=== PATIENT | male | born 1945 | race Caucasian/White ===

== ENCOUNTER 2017-09-21 22:54 | Inpatient (IN) | payer MEDICAID ==
[~2017-09-21] VITALS: Ht 170.2 cm; Wt 75.7 kg
--- NOTE | 2017-09-21 22:59 | NUR ---
PT BIB [facility] WITH A C/O WITNESSED SYNCOPAL EPISODE. PT DENIES KO. PT'S FAMILY EN ROUTE TO HOSPITAL. PT IS AA&O X4. PT DENIES PAIN AT THIS TIME. PT IS ON THE MONITOR AND CONTINUOUS PULSE OX. RESP EVEN AND UNLABORED. PT DENIES CP. WILL CONTINUE TO MONITOR THE PT.
--- NOTE | 2017-09-21 23:00 | NUR ---
CRISELDA QUINTANILLA FROM ICU CAME DOWN AND TRANSLATED FOR DR. ROJAS AND THE PT. PT IS [place] SPEAKING ONLY.
--- NOTE | 2017-09-21 23:05 | NUR ---
CLEANED PT'S HEAD LACERATION AND DERMABONDED WOUND, PER DR. ROJAS.
[2017-09-21] MEDS ORDERED: IV NS 0.9% 1,000 ML BAG IV ONE (23:30)
[2017-09-21 23:38] LABS: BASOPHILS # (AUTO) 0.1 /CMM (0.0-0.2); BASOPHILS % (AUTO) 0.6 % (0.0-2.0); EOSINOPHILS % (AUTO) 0.5 % (0.0-6.0); HEMATOCRIT 32 % (39-51); HEMOGLOBIN 10.4 g/dL (13.5-17.5); LYMPHOCYTES # (AUTO) 1.8 /CMM (0.8-4.8); LYMPHOCYTES % (AUTO) 8.5 % (20.0-44.0); MEAN CORPUSCULAR HGB CONC 33 g/dl (31.0-36.0); MEAN CORPUSCULAR VOLUME 86 fL (80-96); MONOCYTES # (AUTO) 1.4 /CMM (0.1-1.30); MONOCYTES % (AUTO) 6.6 % (2.0-12.0); NEUTROPHILS # (AUTO) 18.2 /CMM (1.8-8.9); NEUTROPHILS % (AUTO) 83.8 % (43.0-81.0); PLATELET COUNT (AUTO) 433 /CMM (150-450); RDW COEFFICIENT OF VARIATION 15.6 (11.5-15.0); RED BLOOD CELL COUNT(AUTO) 3.73 MIL/uL (4.5-6.0); WHITE BLOOD COUNT (AUTO) 21.7 K/uL (4.3-11.0)
[2017-09-21 23:51] LABS: CALCIUM, SERUM 9.4 mg/dL (8.5-10.1); CARBON DIOXIDE 26 mmol/L (21-32); CHLORIDE 100 mmol/L (98-107); GLUCOSE 125 mg/dL (74-106); POTASSIUM 4.3 mmol/L (3.5-5.1); SODIUM SERUM 137 mmol/L (136-145); UREA NITROGEN, BLOOD 14 mg/dL (7-18)
[2017-09-21 23:56] LABS: INR 1.06 (0.87-1.13)
[2017-09-21 23:58] LABS: ALANINE AMINOTRANSFERASE 70 U/L (12-78); ALBUMIN 2.6 g/dL (3.4-5.0); ALKALINE PHOSPHATASE 100 U/L (46-116); ASPARTATE AMINOTRANSFERASE 50 U/L (15-37); BILIRUBIN,DIRECT 0.2 mg/dL (0.0-0.2); BILIRUBIN,TOTAL 0.8 mg/dL (0.2-1.0); TOTAL PROTEIN, SERUM 7.5 g/dL (6.4-8.2)
[2017-09-21 23:59] LABS: TROPONIN I < 0.017 ng/mL (0.00-0.056)
--- NOTE | 2017-09-22 00:04 | NUR ---
PT IS GOING TO CT VIA [employer].
[2017-09-22] MEDS ORDERED: IOHEXOL-350 100 ML VIAL IV ONE (00:06)
[2017-09-22] MEDS ORDERED: CT SWABBABLE VALVE TRANS SET 1 EA INFUS.SET MC ONE (00:06)
[2017-09-22 00:27] LABS: LYMPHOCYTES % (MANUAL) 17 % (16-48); NEUTROPHILS % (MANUAL) 83 (42-76)
[2017-09-22] MEDS ORDERED: IV NS 0.9% 1,000 ML BAG IV ONE (01:00)
[2017-09-22] MEDS ORDERED: PIPERACILLIN /TAZOBACTAM 3.375 G in IV D5W 50 ML IV ONE (01:00)
[2017-09-22] MEDS ORDERED: VANCOMYCIN 1 GM in IV D5W 250 ML IV ONE (01:00)
--- NOTE | 2017-09-22 01:10 | NUR ---
TELE 310-2
[2017-09-22] MEDS ORDERED: PIPERACILLIN /TAZOBACTAM 3.375 G VIAL IV ONE (01:47)
[2017-09-22] MEDS ORDERED: VANCOMYCIN 1 GM VIAL ONE (01:47)
[2017-09-22] MEDS ORDERED: IV NS 0.9% 1,000 ML IV PRN (01:52)
[2017-09-22] MEDS ORDERED: ONDANSETRON HCL/PF 4 MG/2 ML VIAL IVP PRN (02:00)
[2017-09-22] MEDS ORDERED: MORPHINE SULFATE INJ 2 MG/ML DISP.SYRIN IV PRN (02:00)
[2017-09-22] MEDS ORDERED: Z GUARD REMEDY 2 OZ OINT TP PRN (02:00)
[2017-09-22] MEDS ORDERED: TEMAZEPAM 7.5 MG CAPSULE PO PRN (02:00)
[2017-09-22] MEDS ORDERED: HYDROCODONE/APAP 5/325MG 1 EACH TABLET PO PRN (02:00)
[2017-09-22] MEDS ORDERED: ACETAMINOPHEN 325 MG TABLET PO PRN (02:00)
[2017-09-22] MEDS ORDERED: MAG HYDROX/AL HYDROX/SIMETH 30 ML UDC PO PRN (02:00)
[2017-09-22] MEDS ORDERED: MAGNESIUM HYDROXIDE 30 ML UDC PO PRN (02:00)
--- NOTE | 2017-09-22 02:02 | NUR ---
PT REC'D 2300 ML NS. 1300 ML STILL INFUSING UPON ADMISSION.
--- NOTE | 2017-09-22 02:03 | NUR ---
PT REC'D ZOSYN 3.37 VIA 20G LAC. GIVEN BY CRISELDA CLAYTON.
--- NOTE | 2017-09-22 02:42 | NUR ---
VANCO 1 GM GIVEN VIA 20G LAC BY CRISELDA WIGGINS. INFUSING UPON ADMISSION.
--- NOTE | 2017-09-22 03:35 | NUR ---
PT TRANSFERRED PER ACLS PROTOCOL.
--- NOTE | 2017-09-22 03:40 | NUR ---
NS GIVEN VIA IV LAC 20 AT 75CC/HR
[2017-09-22 04:00] VITALS: BP 113/58
[2017-09-22 04:14] LABS: APPEARANCE,URINE CLEAR (CLEAR); BILIRUBIN,URINE NEGATIVE (NEGATIVE); BLOOD, URINE NEGATIVE Ery/uL (NEGATIVE); COLOR,URINE YELLOW (YELLOW); KETONES,URINE NEGATIVE (NEGATIVE); LEUKOCYTE ESTERASE ,URINE NEGATIVE (NEGATIVE); NITRITE, URINE NEGATIVE (NEGATIVE); PH,URINE 6.5 (5.0-8.0); PROTEIN,URINE NEGATIVE (NEGATIVE); UGLUCOSE NEGATIVE (NEGATIVE)
[2017-09-22 04:43] LABS: BACTERIA,URINE None seen /HPF (None Seen); RBC,URINE 0-2 /HPF (0-2); SQUAMOUS EPITHELIAL CELL,UR Few /HPF (None Seen); WBC,URINE 0-2 /HPF (0-3)
[2017-09-22 04:44] LABS: MUCUS,URINE Few /LPF (None Seen)
[2017-09-22] MEDS ORDERED: PIPERACILLIN /TAZOBACTAM 3.375 G in IV D5W 100 ML IV SCH ×2 (05:00→08:00)
[2017-09-22] MEDS ORDERED: ENOXAPARIN SODIUM 40 MG/0.4 ML DISP.SYRIN SQ ONE (05:00)
[2017-09-22 05:02] VITALS: BP 113/58
[2017-09-22] MEDS ORDERED: VANCOMYCIN 1 GM in IV NS 0.9% 250 ML IV ONE (06:00)
--- NOTE | 2017-09-22 06:04 | NUR ---
IRON LAUNDER OPERATOR NOTES RECEIVE PT VIA STEVE FROM Amber AT 0336 AM PT ADMIT TO TELE HEAD TO TOE ASSESSMENT IS DONE, ATTACH TO TELE MONITOR SR 80 PT NOW COMFORTABLY ASLEEP AND EASILY AWAKEN, 2L NC 02 SAT 98% IN STABLE CONDITION. RESPIRATION EVEN AND UNLABORED. KEPT CLEAN AND DRY AND COMFORTABLE, ALL NURSING CARE RENDERED. NEEDS ATTENDED AND ANTICIPATED, GOOD SKIN CARE PROVIDED. FREQUENT VISUAL CHECK DONE FOR SAFETY EVERY 2 HOURS. ON LOW BED AT ALL TIMES TO ENSURE SAFETY. SAFE HAZARD FREE ENVIRONMENT PROVIDED. NO COMPLAINS OF PAIN. CALL LIGHT WITHIN EASY TO REACH. WILL ENDORSE NEXT SHIFT CONTINUITY OF CARE.
[2017-09-22 06:59] LABS: THYROID STIMULATING HORMONE 3.287 uIU/mL (0.358-3.74)
[2017-09-22] MEDS ORDERED: FEE PK DOSING 1 MIN EA MC ONE (07:09)
[2017-09-22 07:10] LABS: PHOSPHORUS 3.3 mg/dL (2.5-4.9)
--- NOTE | 2017-09-22 07:15 | NUR ---
RN NOTES PT IS SITTING UP IN BED, AWAKE AND ALERT. PT ON 2L O2, RESPIRATIONS ARE EVEN AND UNLABORED. IV ON LAC INTACT AND RUNNING NS @ 75ML/HR. NO SIGNS OF DISTRESS NOTED. SAFETY MEASURES ARE IN PLACE, CALL LIGHT IS IN REACH. WILL CONTINUE TO MONITOR.
[2017-09-22] MEDS ORDERED: MORPHINE SULFATE INJ 4 MG/ML DISP.SYRIN IV PRN (07:30)
[2017-09-22 08:00] VITALS: BP 106/59
[2017-09-22] MEDS: PANTOPRAZOLE 40 MG TABLET.DR PO SCH (08:11)
[2017-09-22] MEDS: PIPERACILLIN /TAZOBACTAM 3.375 G in IV D5W 50 ML IV SCH ×3 (08:51→17:39)
[2017-09-22] MEDS ORDERED: FERR325T23 PO (09:20)
[2017-09-22] MEDS ORDERED: ALBU18HF2 IH (09:20)
[2017-09-22] MEDS ORDERED: ERGO500040 PO (09:20)
[2017-09-22] MEDS ORDERED: ONDANSETRON 4 MG TAB.RAPDIS PO PRN (09:30)
[2017-09-22 11:03] LABS: CALCIUM, SERUM 9.1 mg/dL (8.5-10.1); CARBON DIOXIDE 22 mmol/L (21-32); CHLORIDE 105 mmol/L (98-107); CREATININE 0.8 mg/dL (0.6-1.3); GLUCOSE 110 mg/dL (74-106); POTASSIUM 4.2 mmol/L (3.5-5.1); SODIUM SERUM 138 mmol/L (136-145); UREA NITROGEN, BLOOD 10 mg/dL (7-18)
[2017-09-22 11:28] LABS: BASOPHILS % (AUTO) 0.2 % (0.0-2.0); EOSINOPHILS % (AUTO) 0.4 % (0.0-6.0); HEMATOCRIT 30 % (39-51); HEMOGLOBIN 9.6 g/dL (13.5-17.5); LYMPHOCYTES # (AUTO) 1.6 /CMM (0.8-4.8); LYMPHOCYTES % (AUTO) 9.5 % (20.0-44.0); MEAN CORPUSCULAR HGB CONC 32 g/dl (31.0-36.0); MEAN CORPUSCULAR VOLUME 85 fL (80-96); MONOCYTES # (AUTO) 1.3 /CMM (0.1-1.30); MONOCYTES % (AUTO) 8.1 % (2.0-12.0); NEUTROPHILS # (AUTO) 13.7 /CMM (1.8-8.9); NEUTROPHILS % (AUTO) 81.8 % (43.0-81.0); PLATELET COUNT (AUTO) 426 /CMM (150-450); RDW COEFFICIENT OF VARIATION 15.1 (11.5-15.0); RED BLOOD CELL COUNT(AUTO) 3.47 MIL/uL (4.5-6.0); WHITE BLOOD COUNT (AUTO) 16.7 K/uL (4.3-11.0)
[2017-09-22] MEDS ORDERED: LIDOCAINE HCL/PF 1% 30 ML SDV ONE (13:31)
[2017-09-22] MEDS: DEXAMETHASONE SOD PHOSPHATE 4 MG/ML VIAL IV SCH ×2 (14:16→22:17)
[2017-09-22] MEDS: VANCOMYCIN 1 GM in IV D5W 250 ML IV SCH (14:16)
--- NOTE | 2017-09-22 14:29 | NUR ---
Per Radiologist Dr. Turk, U/S Guided Thoracentesis procedure to be done tomorrow (09/23/17) due to blood thinner Lovanox that was given this morning. I told CRISELDA Gutierrez to withhold any blood thinners for tomorrow's procedure. Consent pending to be signed.
[2017-09-22] MEDS ORDERED: ENOXAPARIN SODIUM 30 MG/0.3 ML DISP.SYRIN SQ ONE (15:00)
[2017-09-22 16:00] VITALS: BP 128/71
--- NOTE | 2017-09-22 18:27 | NUR ---
RN NOTES PT IS SITTING UP IN BED, RESTING COMFORTABLY WITH FAMILY AT BEDSIDE. PT ON RA, RESPIRATIONS ARE EVEN AND UNLABORED. ALL MEDS WERE GIVEN ORDERED AND PT NEEDS MET. NO SIGNS OF DISTRESS NOTED. SAFETY MEASURES ARE IN PLACE, CALL LIGHT IS IN REACH. WILL ENDORSE TO CASING CLEANER RN FOR CONTINUITY OF CARE.
--- NOTE | 2017-09-22 19:30 | NUR ---
MS RN INITIAL NOTE PT IS IN BED SLEEPING, EASILY AROUSED. NO SIGNS OF SOB OR DISTRESS, BREATHING EVENLY AND UNLABORED. IV ACCESS IS INTACT AND PATENT. BED IS IN LOW AND LOCKED POSITION, CALL LIGHT WITHIN REACH. WILL CONTINUE TO MONITOR.
[2017-09-22 20:00] VITALS: BP 110/56
[2017-09-22] MEDS ORDERED: ENOXAPARIN SODIUM 80 MG/0.8 ML DISP.SYRIN SQ SCH (21:00)
[2017-09-23] MEDS: PIPERACILLIN /TAZOBACTAM 3.375 G in IV D5W 50 ML IV SCH ×4 (00:19→17:52)
[2017-09-23] MEDS: VANCOMYCIN 1 GM in IV D5W 250 ML IV SCH ×2 (01:47→15:11)
[2017-09-23] MEDS: DEXAMETHASONE SOD PHOSPHATE 4 MG/ML VIAL IV SCH ×3 (05:10→20:54)
--- NOTE | 2017-09-23 06:25 | NUR ---
MS RN CLOSING NOTE PT IS IN BED SLEEPING, EASILY AROUSED. NO SIGNS OF SOB OR DISTRESS, BREATHING EVENLY AND UNLABORED. IV ACCESS IS INTACT AND PATENT. NO ACUTE CHANGES THROUGHOUT THE SHIFT. ALL NEEDS WERE ANTICIPATED AND MET. BED IS IN LOW AND LOCKED POSITION, CALL LIGHT WITHIN REACH. WILL ENDORSE TO DAYSHIFT
[2017-09-23 06:42] LABS: HEMATOCRIT 35 % (39-51); HEMOGLOBIN 11.2 g/dL (13.5-17.5); LYMPHOCYTES # (AUTO) 0.4 /CMM (0.8-4.8); LYMPHOCYTES % (AUTO) 3.1 % (20.0-44.0); MEAN CORPUSCULAR HGB CONC 32 g/dl (31.0-36.0); MEAN CORPUSCULAR VOLUME 87 fL (80-96); MONOCYTES # (AUTO) 0.3 /CMM (0.1-1.30); MONOCYTES % (AUTO) 2.1 % (2.0-12.0); NEUTROPHILS # (AUTO) 13.4 /CMM (1.8-8.9); NEUTROPHILS % (AUTO) 94.8 % (43.0-81.0); PLATELET COUNT (AUTO) 490 /CMM (150-450); RDW COEFFICIENT OF VARIATION 15.2 (11.5-15.0); RED BLOOD CELL COUNT(AUTO) 4.08 MIL/uL (4.5-6.0); WHITE BLOOD COUNT (AUTO) 14.1 K/uL (4.3-11.0)
[2017-09-23 07:08] LABS: CALCIUM, SERUM 10.3 mg/dL (8.5-10.1); CARBON DIOXIDE 23 mmol/L (21-32); CHLORIDE 107 mmol/L (98-107); CREATININE 0.9 mg/dL (0.6-1.3); GLUCOSE 172 mg/dL (74-106); POTASSIUM 4.6 mmol/L (3.5-5.1); SODIUM SERUM 142 mmol/L (136-145); UREA NITROGEN, BLOOD 9 mg/dL (7-18)
--- NOTE | 2017-09-23 07:15 | NUR ---
RN OPENING NOTES RECEIVED PT. IN BED SLEEPING. BREATHING UNLABORED, AND EVENLY ON ROOM AIR. NO S/S OF ACUTE DISTRESS. BED IS IN LOWEST, AND LOCKED POSITION. 2 SIDE RAILS UP, AND CALL LIGHT WITHIN REACH. WILL CONTINUE TO ASSESS AND MONITOR.
[2017-09-23 08:00] VITALS: BP 123/69
[2017-09-23] MEDS: PANTOPRAZOLE 40 MG TABLET.DR PO SCH (08:00)
[2017-09-23] MEDS ORDERED: ENOXAPARIN SODIUM 40 MG/0.4 ML DISP.SYRIN SQ SCH (09:00)
[2017-09-23] MEDS ORDERED: ENOXAPARIN SODIUM 80 MG/0.8 ML DISP.SYRIN SQ SCH (09:00)
[2017-09-23 16:00] VITALS: BP 106/62
--- NOTE | 2017-09-23 16:25 | NUR ---
PLEURAL FLUID SPECIMENS WERE GIVEN TO PATHOLOGY FOR EVALUATION. 1200 ML OF PLEURAL FLUIDS WERE REMOVED FOR TESTING.
--- NOTE | 2017-09-23 19:30 | NUR ---
MS RN NOTES RECEIVED SITTING ON BEDSIDE CHAIR,A/O X4,GABONESE/IRISH SPEAKING,FAMILY MEMBERS AT BEDSIDE.SALINE LOCK LAC INTACT AND PATENT.DENIES CHEST PAIN.BAND AID IN PLACE ON RIGHT BACK AREA,S/O THORACENTESIS.WILL MONITOR BREATHING PATTERN AND O2SAT.CALL LIGHT IN REACH,NEEDS ANTICIPATED.
--- NOTE | 2017-09-23 19:45 | NUR ---
RN CLOSING NOTES PT. IS IN BED A&OX3-4. BREATHING UNLABORED, AND EVENLY ON ROOM AIR. NO S/S OF ACUTE DISTRESS. IV ACCESS ON LEFT ANTECUBITAL SITE IS INTACT AND PATENT. PT. HAD THORACENTESIS AT BEDSIDE AND 1200 CC OF PLEURAL FLUIDS WERE REMOVED FROM THE RIGHT LOWER LUNG, AND SPECIMENS WAS SENT TO LAB. PT.'S BED IS IN LOWEST, AND LOCKED POSITION. 2 SIDE RAILS UP, AND CALL LIGHT WITHIN REACH. ALL NEEDS MET. FAMILY WAS AT BEDSIDE TODAY. WILL ENDORSE REPORT TO NURSE.
[2017-09-23 20:00] VITALS: BP 103/57
[2017-09-23] MEDS: ENOXAPARIN SODIUM 80 MG/0.8 ML DISP.SYRIN SQ SCH (20:55)
--- NOTE | 2017-09-23 21:00 | NUR ---
MS RN NOTES STARTED ON LOVENOX 70MG,GIVEN SQ VIA RIGHT LOWER ABDOMEN
--- NOTE | 2017-09-24 | NUR ---
MS RN NOTES DUE IV ZOSYN 3.375GM IVPB HUNG
[2017-09-24] MEDS: PIPERACILLIN /TAZOBACTAM 3.375 G in IV D5W 50 ML IV SCH ×3 (00:16→12:02)
--- NOTE | 2017-09-24 02:00 | NUR ---
MS RN NOTES DUE VANCOMYCIN 1GM IVPB HUNG
[2017-09-24] MEDS: VANCOMYCIN 1 GM in IV D5W 250 ML IV SCH ×2 (02:02→14:29)
[2017-09-24] MEDS: DEXAMETHASONE SOD PHOSPHATE 4 MG/ML VIAL IV SCH (04:57)
--- NOTE | 2017-09-24 06:02 | NUR ---
MS RN NOTES FAIRLY RESTED AT NIGHT,AMBULATE WITH STEADY GAIT TO THE BATHROOM.SALINE LOCK REMAINS PATENT.IV ABX TOLERATED WELL.DENIES PAIN,DENIES DIZZINESS.IN NO ACUTE DISTRESS.WILL ENDORSE TO DAY NURSE FOR GREGORIO.
[2017-09-24 06:50] LABS: HEMATOCRIT 31 % (39-51); LYMPHOCYTES # (AUTO) 0.9 /CMM (0.8-4.8); LYMPHOCYTES % (AUTO) 4.3 % (20.0-44.0); MEAN CORPUSCULAR HGB CONC 32 g/dl (31.0-36.0); MEAN CORPUSCULAR VOLUME 86 fL (80-96); MONOCYTES # (AUTO) 0.7 /CMM (0.1-1.30); MONOCYTES % (AUTO) 3.4 % (2.0-12.0); NEUTROPHILS % (AUTO) 92.3 % (43.0-81.0); PLATELET COUNT (AUTO) 544 /CMM (150-450); RDW COEFFICIENT OF VARIATION 15.6 (11.5-15.0); RED BLOOD CELL COUNT(AUTO) 3.62 MIL/uL (4.5-6.0); WHITE BLOOD COUNT (AUTO) 20.6 K/uL (4.3-11.0)
[2017-09-24 07:04] LABS: CALCIUM, SERUM 9.6 mg/dL (8.5-10.1); CARBON DIOXIDE 26 mmol/L (21-32); CHLORIDE 108 mmol/L (98-107); CREATININE 0.8 mg/dL (0.6-1.3); GLUCOSE 141 mg/dL (74-106); POTASSIUM 4.1 mmol/L (3.5-5.1); SODIUM SERUM 142 mmol/L (136-145); UREA NITROGEN, BLOOD 12 mg/dL (7-18)
--- NOTE | 2017-09-24 07:10 | NUR ---
RN OPENING NOTES RECEIVED PT. IN BED AWAKE, A&OX4. BREATHING UNLABORED, AND EVENLY ON ROOM AIR. NO S/S OF ACUTE DISTRESS. BED IS IN LOWEST, AND LOCKED POSITION. 2 SIDE RAILS UP, AND CALL LIGHT WITHIN REACH. ALL NEEDS MET. WILL CONTINUE TO ASSESS AND MONITOR.
[2017-09-24] MEDS: PANTOPRAZOLE 40 MG TABLET.DR PO SCH (07:41)
[2017-09-24 08:00] VITALS: BP 106/59
[2017-09-24 09:16] LABS: BAND % (MANUAL) 4 % (0.0-5.0); LYMPHOCYTES % (MANUAL) 5 % (16-48); MONOCYTES % (MANUAL) 3 % (0-11.0); NEUTROPHILS % (MANUAL) 88 (42-76)
[2017-09-24] MEDS: ENOXAPARIN SODIUM 80 MG/0.8 ML DISP.SYRIN SQ SCH (09:35)
[2017-09-24] MEDS ORDERED: LEVO500T90 PO (12:37)
[2017-09-24] MEDS ORDERED: APIX5TAB PO (12:37)
[2017-09-24] MEDS ORDERED: PRED20TA PO (12:37)
[2017-09-24] MEDS ORDERED: DEXAMETHASONE SOD PHOSPHATE 4 MG/ML VIAL IV SCH (17:00)
--- NOTE | 2017-09-24 17:00 | NUR ---
NOTCHED BLADE LOADER PT. WAS DISCHARGE IN STABLE CONDITION. DISCHARGE INSTRUCTIONS, WITH EDUCATION WAS GIVEN, AND PT. AND DAUGHTER VERBALIZED UNDERSTANDING. BELONGINGS LIST WAS CHECKED AND SIGNED. IV AND ID BAND WAS REMOVED WITHOUT COMPLICATIONS. PRESCRIPTION WAS GIVEN TO PATIENT WITH EDUCATION. PT. LEFT WITH FAMILY ALONGSIDE IN A WHEELCHAIR. ALL QUESTIONS ANSWERED. PT. AGREED TO DISCHARGE INSTRUCTIONS, AND HAS FOLLOW UP APPOINTMENT SCHEDULED. PT. LEFT WITH DISCHARGE PACKET. PICTURE WAS TAKEN AND PLACED IN CHART.
== END 2017-09-24 17:15 | disposition home or self-care (01) | DRG 720 ==
LOC: ER 22:57 → TELE 09-22 01:48 → MED 09-22 08:28
PROVIDERS: ADMIT Nurse Practitioner Acute Care; ATTEND Nurse Practitioner Acute Care
PROC: 0W993ZZ Drainage of Right Pleural Cavity, Percutaneous Approach (ICD-10-PCS; principal; 2017-09-23)
DX: A41.9 Sepsis, unspecified organism (principal); J18.9 Pneumonia, unspecified organism; E44.0 Moderate protein-calorie malnutrition; I82.C11 Acute embolism and thrombosis of right internal jugular vein; C34.90 Malignant neoplasm of unspecified part of unspecified bronchus or lung; I87.1 Compression of vein; D63.8 Anemia in other chronic diseases classified elsewhere; E77.8 Other disorders of glycoprotein metabolism; S01.01XA Laceration without foreign body of scalp, initial encounter; E86.0 Dehydration; R55 Syncope and collapse; F31.9 Bipolar disorder, unspecified; F17.210 Nicotine dependence, cigarettes, uncomplicated; Z79.01 Long term (current) use of anticoagulants; M50.30 Other cervical disc degeneration, unspecified cervical region; Z68.26 Body mass index [BMI] 26.0-26.9, adult; R90.89 Other abnormal findings on diagnostic imaging of central nervous system; W18.30XA Fall on same level, unspecified, initial encounter; Y93.9 Activity, unspecified; Y92.009 Unspecified place in unspecified non-institutional (private) residence as the place of occurrence of the external cause
CPT/HCPCS: 36415; 70450-TC; 71045-TC; 72125-TC; 76942-TC; 80048-TC; 80061-TC; 80076-TC; 80202-TC; 81000-TC; 83605-TC; 83735-TC; 84100-TC; 84443-TC; 84484-TC; 85025-TC; 85730-TC; 87040-TC; 87070-TC; 87081-TC; 87086-TC; 88305-TC; 88312-TC; 88342; 89051-TC; 93307-TC; A4216; A4606; A6402; J1100; J1650; J2543; J3370; J3490; J7030; J7050; J7060; Q9967; Z7610